=== PATIENT | female | born 1995 | race African-American/Black ===

== ENCOUNTER 2017-06-10 00:10 | Emergency (ER) | payer SELFPAY ==
[~2017-06-10] VITALS: Ht 152.4 cm; Wt 73.6 kg
[2017-06-10 00:18] VITALS: BP 130/73; TEMP 98
[2017-06-10] MEDS ORDERED: CEPHALEXIN500 M1 PO (01:05)
[2017-06-10 01:13] VITALS: PULSE 88
== END 2017-06-10 01:13 | disposition home or self-care (01) ==
LOC: COL.ER 00:10
DX: L98.8 Other specified disorders of the skin and subcutaneous tissue (principal)